=== PATIENT | female | born 2000 | race Caucasian/White ===

== ENCOUNTER 2018-08-03 07:28 | Outpatient (CLI) | payer OTHER | END 2018-08-03 07:37 | disposition home or self-care (01) | LOC: SONOGRAMA 07:28 | DX: E04.2 Nontoxic multinodular goiter (principal) ==

== ENCOUNTER 2024-07-29 08:06 | Outpatient (CLI) | payer OTHER ==
[2024-07-29 08:52] LABS: PH,URINE 6.5 (5.0-8.0); URINE APPEARANCE Clear; URINE BILIRRUBIN Negative (NEGATIVE); URINE BLOOD Negative; URINE COLOR Yellow; URINE GLUCOSE Negative (NEGATIVE); URINE KETONE Negative (NEGATIVE); URINE LEUKOCYTE Negative; URINE NITRATE Negative; URINE PROTEIN Negative (NEGATIVE); URINE UROBILINOGEN 0.2 E.U./dl
[2024-07-29 08:54] LABS: URINE EPITHELIAL CELLS 15.3 uL (0.0-38.8); URINE RBC 12.2 uL (0.0-20.8); URINE WBC 10.4 uL (0.0-23.2)
[2024-07-29 08:59] LABS: HEMATOCRIT 37.4 % (36.0-45.00); HEMOGLOBIN 12.9 g/dL (12.0-15.00); MEAN CELL VOLUME 88.1 fL (80.00-100.00); MEAN CORPUSCULAR HEMOGLOBIN 30.4 pg (27.00-32.0); MEAN CORPUSCULAR HGB CONC 34.5 g/dl (32.0-36.0); PLATELET COUNT 250 K/uL (150-450); RED BLOOD COUNT 4.25 M/uL (4.00-6.00); RED CELL DISTRIBUTION WIDTH 12.9 % (11.5-14.5)
[2024-07-29 10:24] LABS: URINE CAST 0.14 uL (0.0-1.40)
[2024-07-29 10:45] LABS: ALBUMIN 3.8 gm/dL (3.4-5.0); BILIRUBIN TOTAL 0.85 mg/dL (0.3-1.2); CALCIUM 8.9 mg/dL (8.5-10.1); CREATININE SERUM 0.59 mg/dL (0.55-1.02); GFR 123.21; GLOBULINA 3.9 G/DL (2.4-3.5); POTASSIUM 3.84 mEq/L (3.5-5.1); TOTAL PROTEIN 7.7 gm/dL (6.4-8.2)
[2024-07-29 10:58] LABS: T4 TOTAL 17.03 UG/DL (4.8-13.9); TSH 58.5 uIU/mL (0.358-3.74)
== END 2024-07-29 08:07 | disposition home or self-care (01) ==
LOC: LAB 08:06
PROVIDERS: ATTEND General Practice
DX: E03.9 Hypothyroidism, unspecified (principal)

== ENCOUNTER 2024-10-28 07:02 | Outpatient (CLI) | payer OTHER ==
[2024-10-28 07:56] LABS: BASO % 0.2 % (0.1-1.2); EOS # 0.19 (0.04-0.54); HEMATOCRIT 37.6 % (34.1-44.9); HEMOGLOBIN 12.6 g/dL (11.2-15.7); LYMPH # 2.71 (1.18-3.74); LYMPH % 42.9 % (19.3-53.1); MEAN CORPUSCULAR HEMOGLOBIN 29.4 pg (25.6-32.2); MONO % 6.3 % (4.7-12.5); NEUT # 2.99 (1.56-6.13); NEUT % 47.3 % (34.0-71.1); PLATELET COUNT 235 K/uL (163-369); RED BLOOD COUNT 4.29 M/uL (3.93-5.22); RED CELL DISTRIBUTION WIDTH 12.3 % (11.6-14.4)
[2024-10-28 08:49] LABS: TSH 4.08 uIU/mL (0.358-3.74)
[2024-10-28 08:53] LABS: T4 FREE 1.69 NG/ML (0.76-1.46)
== END 2024-10-28 07:04 | disposition home or self-care (01) ==
LOC: LAB 07:02
PROVIDERS: ATTEND Student in an Organized Health Care Education/Training Program
DX: D50.8 Other iron deficiency anemias (principal); E03.8 Other specified hypothyroidism; C73 Malignant neoplasm of thyroid gland

== ENCOUNTER 2025-03-08 09:30 | Outpatient (CLI) | payer OTHER | END 2025-03-08 09:40 | disposition home or self-care (01) | LOC: PPH VACUNA 09:30 | PROVIDERS: ATTEND Emergency Medicine Pediatric Emergency Medicine | DX: Z23 Encounter for immunization (principal) ==